=== PATIENT | female | born 1965 | race Caucasian/White ===

== ENCOUNTER 2025-07-06 09:36 | Observation (INO) ==
--- NOTE | 2025-06-01 10:29 | PAT Medication Instructions ---
Medication Instructions Date of Service June 01, 2025 Home Medications Medication Instructions Recorded 3-in-1 Commode #1 ea 05/23/25 albuterol sulfate 90 mcg/actuation breath activated powder inhaler 2 inh inhalation Q6H PRN Wheezing ascorbic acid (vitamin C) 1,000 mg tablet (Vitamin C) 1 g PO BID hydrochlorothiazide 25 mg tablet 25 mg PO QAM lisinopril 40 mg tablet 40 mg PO QAM multivitamin 1 tab PO QAM amlodipine 2.5 mg tablet 2.5 mg PO QAM atorvastatin 20 mg tablet 20 mg PO QAM [id number]-silerfaai-afmt tablet 1 tab PO BID duloxetine 30 mg capsule,delayed release 30 mg PO QAM naproxen sodium 220 mg capsule 220 mg PO BID PRN Pain omeprazole 20 mg tablet,delayed release 20 mg PO QAM turmeric 400 mg capsule 1,000 mg PO HS ASK your surgeon for instructions naproxen sodium 220 mg capsule 220 mg PO BID PRN Pain STOP taking 2 weeks before surgery (or as soon as possible if surgery is within 2 weeks) turmeric 400 mg capsule 1,000 mg PO HS DO NOT take the morning of surgery ascorbic acid (vitamin C) 1,000 mg tablet (Vitamin C) 1 g PO BID hydrochlorothiazide 25 mg tablet 25 mg PO QAM lisinopril 40 mg tablet 40 mg PO QAM multivitamin 1 tab PO QAM vnuddub-qhqfmaxnh-xswj tablet 1 tab PO BID Take morning of surgery With a small sip of water, OTHERWISE NOTHING TO EAT OR DRINK AFTER MIDNIGHT: albuterol sulfate 90 mcg/actuation breath activated powder inhaler 2 inh inhalation Q6H PRN Wheezing (use if needed; please bring rescue inhaler with you to hospital day of surgery if possible) amlodipine 2.5 mg tablet 2.5 mg PO QAM atorvastatin 20 mg tablet 20 mg PO QAM duloxetine 30 mg capsule,delayed release 30 mg PO QAM omeprazole 20 mg tablet,delayed release 20 mg PO QAM Take evening before surgery albuterol sulfate 90 mcg/actuation breath activated powder inhaler 2 inh inhalation Q6H PRN Wheezing (if needed) ascorbic acid (vitamin C) 1,000 mg tablet (Vitamin C) 1 g PO BID uwbjnwp-throcndbu-nofu tablet 1 tab PO BID Other Notes If you have any questions please call us at [phone] or [phone] or [phone] or [phone]
--- NOTE | 2025-06-07 13:02 | Anesthesiology Consultation ---
Date of Service June 07, 2025 Assessment & Plan (1) Encounter for pre-operative examination: - will send optimization form to [facility] PCP, Dr. Elena Hardin regarding EKG. Surgeon's office made aware. Patient made aware, denied questions or concerns. - check BSG am DOS. - bilat TKA discussion vs staged and patient wishes to proceed with bilat TKA. Chart Review Chart Review: Pending: Refer to Additional Notes / Consult section and Patient seen in Pre Admission Testing Teaching & Discussion Pre-Anesthesia Teaching/Discussion Notes: Instructed NPO after midnight before surgery, except medications with 15 cc of water. Medication instructions provided according to the PAT guidelines. History Surgery Operation Date: 07/06/25 12:20 Proposed Procedures p Bilateral Total Knee Arthroplasty - Keegan Arriola DO Height/Weight Height: 5 ft 2.5 in Weight: 111.5 kg Allergies Allergy/AdvReac Type Severity Reaction Status Date / Time adhesive tape Allergy Mild rash for Verified 05/30/25 14:14 lenghty duration lincomycin [From Lincocin] Allergy Mild Rash Verified 05/30/25 14:13 Medications Home Medications Medication Instructions Recorded Confirmed Last Taken albuterol sulfate 90 mcg/actuation 2 inh inhalation Q6H PRN Wheezing 09/08/21 12/19/21 Unknown breath activated powder inhaler ascorbic acid (vitamin C) 1,000 mg 1 g PO BID 09/08/21 05/30/25 12/18/21 07:00 tablet (Vitamin C) hydrochlorothiazide 25 mg tablet 25 mg PO QAM 09/08/21 05/30/25 12/18/21 07:00 lisinopril 40 mg tablet 40 mg PO QAM 09/08/21 05/30/25 12/18/21 07:00 multivitamin 1 tab PO QAM 09/08/21 05/30/25 12/18/21 07:00 3-in-1 Commode #1 ea 05/23/25 05/23/25 Unknown amlodipine 2.5 mg tablet 2.5 mg PO QAM 05/30/25 05/30/25 Unknown atorvastatin 20 mg tablet 20 mg PO QAM 05/30/25 05/30/25 Unknown njpfszp-irnlykiql-nuhd tablet 1 tab PO BID 05/30/25 05/30/25 Unknown duloxetine 30 mg capsule,delayed 30 mg PO QAM 05/30/25 05/30/25 Unknown release naproxen sodium 220 mg capsule 220 mg PO BID PRN Pain 05/30/25 05/30/25 Unknown omeprazole 20 mg tablet,delayed 20 mg PO QAM 05/30/25 05/30/25 Unknown release turmeric 400 mg capsule 1,000 mg PO HS 05/30/25 05/30/25 Unknown Past Medical History Medical History (Updated 06/07/25 @ 13:37 by Yoli Morgan PA-C) Arthritis Asthma controlled, stable per pt; has not used inhaler for over 1 year Diabetes mellitus type 2, diet-controlled 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 Exercise / Class Metabolic Activity III < 4 Walking/Shop/Light housework (denies chest discomfort or shortness of breath with usual activities) Past Family History Family History Grandmother (Paternal) Family history of diabetes mellitus Father Family history of esophageal cancer Other No family history of adverse response to anesthesia Past Surgical History Surgical History History of section x 1 History of colonoscopy 2020 History of dilatation and curettage x2--last 09/12/21 @ [place] with Dr. Valdez History of hysterectomy Past Anesthesia History No Hx of Anesthesia Complications and No Family Hx of Anesthesia Complications History of PONV No Hx of PONV and No Hx of Motion Sickness Social History Smoking Status: Never smoker Do You Dip or Chew Tobacco: No Hx Alcohol Use: No Hx Substance Use: No substance use type: does not use Review of Systems Patient denies chest pain, shortness of breath, dyspnea on exertion, fever, chills, cough, wheezing, or palpitations. Physical Exam Vital Signs Vitals BP 119/73 P 105 (Pt states she does feel somewhat stressed/anxious regarding surgery) TEMP 98.2 SP02 97% on RA RESP 18 Physical Patient resting comfortably in chair in no acute distress, alert and oriented, responding appropriately throughout visit Full cervical extension range of motion without pain TMD 3.5 finger breadths Mallampati Score 3 Dentition: several broken teeth; denies chipped or loose teeth, caps/crowns, implants or bridges Lungs: normal respiratory effort. Good air movement, clear throughout to auscultation, no adventitious breath sounds Cardiac: regular rate and rhythm, no murmurs noted Carotid arteries: negative bruit bilat Lab Results Anesthesia Preop Results Results Anesthesia Widget: WBC 10.42 K/ul (4.8-10.8) 06/07/25 Hgb 13.9 g/dl (12.0-16.0) 06/07/25 Hct 40.1 % (37.0-47.0) 06/07/25 Plt 321 K/uL (130-400) 06/07/25 Na 139 mmol/L (136-145) 06/07/25 K 3.9 mmol/L (3.5-5.1) 06/07/25 Cl 105 mmol/L (98-107) 06/07/25 CO2 26 mmol/L (21-32) 06/07/25 BUN 21 mg/dl (6-23) 06/07/25 Creat 0.67 mg/dl (0.6-1.2) 06/07/25 Glucose Level 138 mg/dl (70-99(Fasting)) H 06/07/25 PT 10.0 Seconds (9.0-12.0) 06/07/25 PTT 27 Seconds (21-31) 06/07/25 INR 0.9 (0.9-1.1) 06/07/25 HA1c 6.1 % (4.5-5.6) H 06/07/25 Blood Type O Positive 06/07/25 Antibody Screen NEGATIVE 06/07/25 Testing Electrocardiogram Date: 06/07/25 Sinus tachycardia, rate 104 bpm Cannot rule out anterior infarct, age undetermined V2 and V3 may be reversed Chest X-Ray Date: 06/07/25 No acute findings.
--- NOTE | 2025-07-04 16:29 | History & Physical Report ---
Date of Service July 04, 2025 Assessment & Plan (1) Osteoarthritis of knees, bilateral: We will proceed with bilateral total knee arthroplasties. Postoperatively, she will be started on aspirin for DVT prophylaxis and kept overnight in the hospital for postop medical management. She plans to use energy physical therapy at discharge. History of Present Illness Chief Complaint: Osteoarthritis bilateral knees. Primary Care Provider: Elena Hardin DO Patiño is a pleasant 59-year-old female who has been dealing with chronic, increasing bilateral knee pain. It has been going on for years. She has had a progressive varus deformity. She saw one of my partners who diagnosed her with severe osteoarthritis of both knees. She has seen other providers and has had Iovera treatment. Unfortunately, conservative treatment has not helped. X-rays and clinical examination be diagnostic for advanced osteoarthritis of both knees. After failing conservative treatment, she has elected to proceed with bilateral total knee arthroplasty. Allergies Allergy/AdvReac Type Severity Reaction Status Date / Time adhesive tape Allergy Mild rash for Verified 05/30/25 14:14 lenghty duration lincomycin [From Lincocin] Allergy Mild Rash Verified 05/30/25 14:13 Home Medications Medication Instructions Recorded Confirmed Type albuterol sulfate 90 mcg/actuation 2 inh inhalation Q6H PRN Wheezing 09/08/21 12/19/21 History breath activated powder inhaler ascorbic acid (vitamin C) 1,000 mg 1 g PO BID 09/08/21 05/30/25 History tablet (Vitamin C) hydrochlorothiazide 25 mg tablet 25 mg PO QAM 09/08/21 05/30/25 History lisinopril 40 mg tablet 40 mg PO QAM 09/08/21 05/30/25 History multivitamin 1 tab PO QAM 09/08/21 05/30/25 History 3-in-1 Commode #1 ea 05/23/25 05/23/25 Rx amlodipine 2.5 mg tablet 2.5 mg PO QAM 05/30/25 05/30/25 History atorvastatin 20 mg tablet 20 mg PO QAM 05/30/25 05/30/25 History xxijsfj-bndtpxnvm-zgmo tablet 1 tab PO BID 05/30/25 05/30/25 History duloxetine 30 mg capsule,delayed 30 mg PO QAM 05/30/25 05/30/25 History release naproxen sodium 220 mg capsule 220 mg PO BID PRN Pain 05/30/25 05/30/25 History omeprazole 20 mg tablet,delayed 20 mg PO QAM 05/30/25 05/30/25 History release turmeric 400 mg capsule 1,000 mg PO HS 05/30/25 05/30/25 History Past Med/Surg History Problem List (Updated 07/04/25 @ 16:29 by Keegan Arriola DO) Osteoarthritis of knees, bilateral Encounter for pre-operative examination Medical History Hx of gout Arthritis Diabetes mellitus type 2, diet-controlled Neuropathy feet Hx of cervical cancer treated with cryotherapy Hyperlipidemia Melanoma in situ of left lower extremity "had mole removed 12/11/21" 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 Physical Exam On physical examination of both knees, she does have a varus deformity. Tenderness palpation of the distal medial femoral condyle and over the medial joint lines.. Constitutional WD/WN, vitals as above Eyes PERRL, conjunctivae normal, anicteric sclerae ENMT external ear and nose normal, oropharynx normal Neck trachea midline, no thyromegaly Respiratory normal respiratory effort Cardiovascular RRR, no murmur, no edema Gastrointestinal (Abdomen) normal bowel sounds, soft, nontender, no hepatosplenomegaly Psychiatric A+Ox3, euthymic affect Results & Data Results & Data Laboratory Results . Diagnostic Findings X-rays of both knees show advanced osteoarthritis with joint space narrowing, osteophyte formation, and zjpl-qd-rnzo articulation. PG Care Time/CCT Total # of Minutes Spent Total Time Spent with Patient: Total time spent is greater than 50% in coordination of care (as documented) at patient's floor/unit and/or counseling patient: Coding Level of Care Code None Diagnoses Osteoarthritis of knees, bilateral M17.0
[~2025-07-06 09:36] MED LIST: BUPIVACAINE 0.25% PF 30 ML VIAL ONE; BUPIVACAINE 0.5 % 5 MG/1 ML PF 10ML VIAL ONE
[2025-07-06] MEDS ORDERED: MIDAZOLAM HCL 1 MG/ML 2ML VIAL ONE ×2 (10:09→12:08)
[2025-07-06] MEDS ORDERED: ONDANSETRON INJ 2 MG/ML 2 ML VIAL ONE (10:10)
[2025-07-06] MEDS ORDERED: PROPOFOL IV EMULSION 10 MG/ML 20 ML VIAL IV ONE ×4 (10:10→12:41)
[2025-07-06] MEDS: ACETAMINOPHEN 500 MG TAB PO SCH ×2 (10:33→22:52)
[2025-07-06] MEDS: GABAPENTIN 600 MG DOSE PO SCH (10:34)
[2025-07-06] MEDS: LR 500ML BOLUS, THEN 15ML/HR IV SCH (10:34)
[2025-07-06] MEDS: FAMOTIDINE 20 MG TAB PO SCH (10:34)
[2025-07-06] MEDS: dexAMETHasone**PF** 10 MG/ML VIAL IV SCH (10:37)
[2025-07-06] MEDS: LR 60ML/HR IV SCH (10:37)
--- NOTE | 2025-07-06 11:04 | History & Physical Bridge Note ---
Date of Service July 06, 2025 History & Physical Bridge Note I have examined the patient, reviewed the History & Physical and in the interval since the performance of the History & Physical I have noted the following changes of clinical significance: no changes noted
[2025-07-06] MEDS ORDERED: ONDANSETRON INJ 2 MG/ML 2 ML VIAL IV PRN ×2 (11:35→18:20)
[2025-07-06] MEDS ORDERED: ATROPINE SULFATE 0.1 MG/ML 10ML SYR IV PRN (11:35)
[2025-07-06] MEDS: TRANEXAMIC ACID 1,000 MG **IV Pre-op IV SCH (11:44)
[2025-07-06] MEDS: ORTHO JOINT ANESTHETIC ONE (12:52)
[2025-07-06] MEDS ORDERED: PROPOFOL IV EMULSION 10 MG/ML 100 ML VIAL IV ONE ×2 (13:04→14:40)
[2025-07-06] MEDS ORDERED: ALBUMIN HUMAN 5% 12.5 GM/250 ML VIAL IV ONE (14:19)
[2025-07-06] MEDS ORDERED: ESMOLOL HCL INJ 10 MG/ML 10ML VIAL IV ONE (14:27)
[2025-07-06] MEDS: ROPIV 0.5% 246mg, Ketorolac 30mg, EPINEPHrine 0.5mg in NSS INFIL SCH (14:30)
[2025-07-06] MEDS ORDERED: METOPROLOL TARTRATE 1 MG/ML VIAL IV ONE (14:48)
--- NOTE | 2025-07-06 16:02 | XRay Report ---
XR knee RT 1 or 2V routine, XR knee LT 1 or 2V routine CLINICAL HISTORY: Surgical Post Op COMPARISON: 01/19/2025 FINDINGS: Bilateral knee prostheses show no hardware complication. There is expected soft tissue gas . IMPRESSION: Unremarkable postoperative exams. ACT 112: Negative or not required by law. Electronically signed by: Abdullahi Lovelace M.D. 07/06/2025 4:01 PM
--- NOTE | 2025-07-06 16:59 | Anesthesiology Progress Note ---
Date of Service July 06, 2025 Anesthesia Post Procedure Vital Signs Vital Signs: Temp Pulse Pulse Resp BP Pulse Ox O2 Del Method 07/06/25 16:30 105 H 18 146/78 H 95 Nasal Cannula 07/06/25 16:20 105 H 16 133/90 96 Nasal Cannula 07/06/25 16:10 104 H 20 148/70 H 96 Nasal Cannula 07/06/25 16:00 104 H 15 140/79 91 Nasal Cannula 07/06/25 15:50 105 H 17 149/82 H 95 Nasal Cannula 07/06/25 15:40 102 H 11 L 142/80 H 94 Nasal Cannula 07/06/25 15:30 36.6 C 102 H 14 142/73 H 100 Oxymask 07/06/25 15:20 101 H 14 131/56 L 97 Oxymask 07/06/25 15:10 101 H 19 148/84 H 95 Oxymask 07/06/25 15:04 36.0 C L 107 H 18 122/63 92 Oxymask 07/06/25 10:07 36.7 C 93 H 20 145/81 H 97 Room Air O2 Flow Rate 07/06/25 16:30 2 07/06/25 16:20 2 07/06/25 16:10 2 07/06/25 16:00 2 07/06/25 15:50 2 07/06/25 15:40 2 07/06/25 15:30 9 07/06/25 15:20 9 07/06/25 15:10 9 07/06/25 15:04 9 07/06/25 10:07 Pain Intensity Left Knee: Pain Intensity: 8 Right Knee: Pain Intensity: 3 Transfer of Care Handoff Completed per policy Notes Mental Status: alert / awake / arousable Patient Amnestic to Procedure: Yes Nausea / Vomiting: adequately controlled Pain: adequately controlled Airway Patency, RR, SpO2: stable & adequate BP & HR: stable & adequate Hydration State: stable & adequate Anesthetic Complications: no major complications apparent
--- NOTE | 2025-07-06 17:43 | Operative Report ---
PG Post Operative Report Pre & Post Diagnosis Operation Date: 07/06/25 11:00 Pre-Op Diagnosis: Osteoarthritis of knees, bilateral Post-Op Diagnosis: Osteoarthritis of knees, bilateral I identified the patient and participated in the time-out.: Yes Procedure Operation Date: 07/06/25 11:00 Actual Procedures p Robotic Assisted Bilateral Total Knee Arthroplasty(Bilateral) - Keegan Arriola DO Surgeon Keegan Arriola DO [place] Torres Banda PA-C Estimated Blood Loss 60 Findings Consistent with Post-Op Diagnosis Specimens Bilateral femoral and tibial bone Description of Procedure Sybil arrived [facility] for the above procedure. She was seen in the preoperative holding area and the operative extremity was identified and signed. She was given a preoperative antibiotic, TXA, a spinal anesthetic and an adductor nerve block. She was taken back to the operating room and laid on the table in supine position. She was given basic sedation. The both knees were then prepped and draped in sterile fashion. A timeout was done, and the patient and the operative extremity was properly identified. RIGHT KNEE Implants used: I used a [employer] total knee arthroplasty system with a size 6 standard femur, D tibia, 31 oval patella, and a size 16 CPS polyethylene bearing. All components were cemented in place with Biomet cement. A midline incision was made directly over the patella. Dissection was taken down to the extensor mechanism. A medial parapatellar arthrotomy was used. The medial retinaculum was released and the fat pad was mostly excised. The knee was flexed and the ACL, PCL, and meniscus were removed. The alignment of the knee replacement was assisted with a [employer] robotic knee. The femoral array was pinned in the distal femur and the tibial array was pinned using a percutaneous technique in the upper shaft of the tibia. The robot was appropriately calibrated and the structure of the knee was mapped out. The components were then manipulated on the screen to account for any malalignment and to assist in gap balancing. Once I was happy with the placement of the components on the screen, a distal femoral cutting guide was brought in place. The distal femur was then resected. The femur measured to be a size 6. A 4-in-1 cutting block was then put into place by the robot and 2 peg holes were drilled. The 4-in-1 cutting block was then impacted into place and anterior, posterior, and chamfer cuts were made. The cutting block was then brought down to the tibia and pinned into place. The proximal tibia was then resected. The posterior aspect of the knee was then opened up and any additional meniscus fragments and osteophytes were removed. The tibia measured to be a size D. The tibial plate was then placed in the appropriate rotation and the tibia was drilled and punched. Trial components were then placed. Th e patella was then everted and 9 mm was resected off the posterior aspect of the patella. The patella measured to be a size 31 oval. 3 peg holes were then drilled. A trial patella was placed. A size 12 CPS polyethylene insert was then trialed. The knee was brought through a full range of motion and felt to be stable. Trial components were then removed. The surrounding soft tissues were injected with 100 cc of an orthopedic pain control cocktail. All components were then cemented into place with Biomet cement. The final polyethylene insert was then snapped into place. Once cement was dry the tourniquet was deflated. Hemostasis was obtained. A dilute betadyne lavage was then done for 3 minutes. The joint was then irrigated with normal saline solution. The medial parapatellar arthrotomy was then closed with #1 Vicryl suture. The skin was closed with 2-0 Vicryl, 3-0V lock suture, and Chan zip line. A soft compressive dressing was placed. LEFT KNEE Implants used: I used a [employer] total knee arthroplasty system with a size 6 narrow femur, D tibia, 28 oval patella, and a size 12 CPS polyethylene bearing. All components were cemented in place with Biomet cement. A midline incision was made directly over the patella. Dissection was taken down to the extensor mechanism. A medial parapatellar arthrotomy was used. The medial retinaculum was released and the fat pad was mostly excised. The knee was flexed and the ACL, PCL, and meniscus were removed. The alignment of the knee replacement was assisted with a [employer] robotic knee. The femoral array was pinned in the distal femur and the tibial array was pinned using a percutaneous technique in the upper shaft of the tibia. The robot was appropriately calibrated and the structure of the knee was mapped out. The components were then manipulated on the screen to account for any malalignment and to assist in gap balancing. Once I was happy with the placement of the components on the screen, a distal femoral cutting guide was brought in place. The distal femur was then resected. The femur measured to be a size 6. A 4-in-1 cutting block was then put into place by the robot and 2 peg holes were drilled. The 4-in-1 cutting block was then impacted into place and anterior, posterior, and chamfer cuts were made. The cutting block was then brought down to the tibia and pinned into place. The proximal tibia was then resected. The posterior aspect of the knee was then opened up and any additional meniscus fragments and osteophytes were removed. The tibia measured to be a size D. The tibial plate was then placed in the appropriate rotation and the tibia was drilled and punched. Trial components were then placed. The patella was then everted and 9 mm was resected off the posterior aspect of the patella. The patella measured to be a size 28 oval. 3 peg holes were then drilled. A trial patella was placed. A size 12 CPS polyethylene insert was then trialed. The knee was brought through a full range of motion and felt to be stable. Trial components were then removed. The surrounding soft tissues were injected with 100 cc of an orthopedic pain control cocktail. All components were then cemented into place with Biomet cement. The final polyethylene insert was then snapped into place. Once cement was dry the tourniquet was deflated. Hemostasis was obtained. A dilute betadyne lavage was then done for 3 minutes. The joint was then irrigated with normal saline solution. The medial parapatellar arthrotomy was then closed with #1 Vicryl suture. The skin was closed with 2-0 Vicryl, 3-0V lock suture, and Chan zip line. A soft compressive dressing was placed. She was then transferred to a hospital bed and taken to the postanesthesia care unit in stable condition. She tolerated the procedure well. Torres Banda PA-C, was present for the entire procedure. He was critical for patient positioning, prepping, draping, retraction exposure, wound closure and application of sterile dressing. I attest to the content of the Intraoperative Record and any orders documented therein. Any exceptions are noted below.
[2025-07-06] MEDS ORDERED: MAGNESIUM HYDROXIDE SUSP 30 ML UDC PO PRN (18:20)
[2025-07-06] MEDS ORDERED: NALOXONE HCL 0.4 MG/1 ML VIAL/CARP IV PRN (18:20)
[2025-07-06] MEDS ORDERED: HYDROmorphone INJ 0.5 MG/0.5 ML SYR IV PRN (18:20)
[2025-07-06] MEDS ORDERED: METOCLOPRAMIDE HCL INJ 5 MG/ML 2 ML VIAL IV PRN (18:20)
[2025-07-06] MEDS: SODIUM CHLORIDE 0.9% 1,000 ML IV SCH (18:30)
[2025-07-06] MEDS: KETOROLAC TROMETHAMINE 15 MG/ML VIAL IV SCH (18:30)
[2025-07-06] MEDS: DOCUSATE SODIUM 100 MG CAP PO SCH (20:03)
[2025-07-06] MEDS: ASPIRIN 81 MG ECTAB PO SCH (20:04)
[2025-07-06] MEDS: SENNA 8.6 MG TAB PO SCH (20:05)
--- NOTE | 2025-07-07 07:47 | Orthopedic Progress Note ---
Date of Service July 07, 2025 Assessment & Plan (1) Status post bilateral knee replacements: Overall she is doing well. She is not having much pain in her knees. She will be seen by physical therapy today for ambulation and range of motion exercises. She is on aspirin for DVT prophylaxis. She can be discharged to home later today if she does well with physical therapy. Otherwise, she can stay until tomorrow. The nursing staff can change her dressings after physical therapy. Pj Patiño was seen and examined at bedside this morning. Overall she is doing fairly well. She is not having much pain in her knees. She has not been up yet. She has no complaints.. Review of Systems All systems reviewed & are unremarkable except as noted in HPI & below. Physical Exam On physical exam of both knees, the dressings are clean and dry. Her legs are on full extension. She has active dorsiflexion plantarflexion of her ankles.. Results & Data Results & Data Laboratory Results . Diagnostic Findings X-rays of both knees show the prosthesis to be in anatomic alignment without any evidence of fracture complication, or loosening.. PG Care Time/CCT Total # of Minutes Spent Total Time Spent with Patient: Total time spent is greater than 50% in coordination of care (as documented) at patient's floor/unit and/or counseling patient: Coding Level of Care Code 96450 Post Operative Follow-Up Diagnoses Status post bilateral knee replacements Z96.653
[2025-07-07] MEDS: hydroCHLOROthiazide 25 MG TAB PO SCH (08:56)
[2025-07-07] MEDS: MULTIVITAMIN TAB PO SCH (08:56)
[2025-07-07] MEDS: ATORVASTATIN 20 MG TAB PO SCH (08:56)
--- NOTE | 2025-07-08 08:02 | Orthopedic Progress Note ---
Date of Service July 08, 2025 Assessment & Plan (1) Status post bilateral knee replacements: Overall she is doing fairly well. She is not having much pain in her knees today. She will be seen by physical therapy for ambulation and range of motion exercises. The nursing staff can change her dressings again after physical therapy. She is on aspirin for DVT prophylaxis. She can be discharged to home later today. She will follow-up with orthopedics in 2 weeks. Pj Devine was seen and examined at bedside this morning. Overall she is doing fairly well. She is not having too much pain in her knees. She was a little bit slow with physical therapy yesterday and decided to stay an extra day. She has no complaints.. Review of Systems All systems reviewed & are unremarkable except as noted in HPI & below. Physical Exam On physical examination of both knees, the dressings have been changed. She is sitting in a chair at bedside with her knees flexed at 90 degrees. She is neurovascular intact.. Results & Data Results & Data Laboratory Results . Diagnostic Findings . PG Care Time/CCT Total # of Minutes Spent Total Time Spent with Patient: Total time spent is greater than 50% in coordination of care (as documented) at patient's floor/unit and/or counseling patient: Coding Level of Care Code 47988 Post Operative Follow-Up Diagnoses Status post bilateral knee replacements Z96.653
--- NOTE | 2025-07-08 08:03 | Discharge Summary ---
Date of Service July 08, 2025 Admission HPI (Per Admitting) Kaylyn is a pleasant 59-year-old female who has been dealing with chronic, increasing bilateral knee pain. It has been going on for years. She has had a progressive varus deformity. She saw one of my partners who diagnosed her with severe osteoarthritis of both knees. She has seen other providers and has had Iovera treatment. Unfortunately, conservative treatment has not helped. X-rays and clinical examination be diagnostic for advanced osteoarthritis of both knees. After failing conservative treatment, she has elected to proceed with bilateral total knee arthroplasty. Admission Exam (Per Admitting) On physical examination of both knees, she does have a varus deformity. Tenderness palpation of the distal medial femoral condyle and over the medial joint lines.. Principal Diagnosis Same as "Discharge Diagnosis" noted below under Discharge Instructions. Discharge Exam On physical examination of both knees, the dressings have been changed. She is sitting in a chair at bedside with her knees flexed at 90 degrees. She is neurovascular intact.. Discharge Data Procedures Performed Operation Date: 07/06/25 11:00 Actual Procedures p Robotic Assisted Bilateral Total Knee Arthroplasty(Bilateral) - Keegan Arriola DO Ordered Studies 07/06/25 05:00 US - OR guided needle placemen Routine Hospital Course (1) Status post bilateral knee replacements: On July 06, 2025 Kaylyn arrived at [facility] and underwent bilateral knee replacements without complication. She had a spinal anesthetic. Postoperatively, she was started on aspirin for DVT prophylaxis and transferred to the general orthopedic floors. Her hospital course was uneventful. On postop day #1, her vital signs were stable and her pain was relatively well- controlled. She was a little bit slow with physical therapy because she had both of her knees replaced. She was having difficulty with stairs. On postop day #2, she was doing better. She was able to participate better with physical therapy and felt she had more strength. She was then discharged to home. She will follow-up with orthopedics in 2 weeks. PG Care Time/CCT Total # of Minutes Spent Total Time Spent with Patient: Total time spent is greater than 50% in coordination of care (as documented) at patient's floor/unit and/or counseling patient: Discharge Plan Discharge Items Patient Disposition: Home - Self-Care Reason For Visit: Bilateral Knee Arthritis Discharge Diagnosis: Bilateral knee replacements Activity: Per Instructions section Non-emergency contact: Surgeon Call non-emergency contact if: your wound has increased redness and your wound has increased drainage Follow-up/Referrals: Elena Hardin, [Primary Care Provider] - Diet: Regular Addtl Attending Provider Instructions: Activity and Therapy Recommendations: * If you are using [facility] then therapy will be provided at your home until they feel you have accomplished all of your goals. * If you are using [facility] then Physical Therapy will be provided until they feel you are ready to start Outpatient Physical Therapy. * If you are not using home therapy then Outpatient Physical Therapy should start about 3-5 days from your day of surgery. Therapy will last about 6-10 weeks * It is important not to put a pillow under your knee when you are relaxing or sleeping. It is just as important to make sure you are getting your knee perfectly straight as it is to regain your knee bend. * You were shown a series of exercises in the hospital. Do these exercises three times each day including the exercises you were shown in physical therapy. * Get up and walk several times each day. For the first four weeks, try not to stand or walk for more than one hour at a time. If you do stand or walk for more than one hour, you will not hurt anything, but your leg will likely swell. * As you feel comfortable, you may change from the walker or crutches to a cane and then to independent walking. Medications: * Narcotic You will likely be sent home from the hospital with a prescription for the narcotic pain medication that worked best throughout your stay. * Cefadroxil -take the antibiotic twice a day for 10 days to help prevent infection. * Aspirin Most patients will be required to take Aspirin 81mg twice a day for 6 weeks after surgery. This is obtained [id number] and a prescription is not necessary. * Other medications may be prescribed for specific circumstances. If you have any questions, please call the office at . * Resume previous home medications unless otherwise instructed TEDs/Elastic Stockings: The white elastic stockings help limit swelling and prevent blood clots from forming in your legs.~ The more you wear them, the more they work. Wear them for 2 weeks. Dressing Care: The dressing can be changed after physical therapy on postop day #1. Daily dry dressing changes for a few days, especially if the incision is still draining some. Do not remove the [place] zip line If the incision is not draining then you may leave the [place] zip line open to air. If there is a little bit of drainage or if the [place] zip line is getting stuck on your clothing then cover the incision with a dry dressing. The [place] zip line will be removed at your 2 week follow-up appointment. Showering: You may shower 5 days from the day of surgery as long as the incision is no long er draining. You may shower with the Chan zip line exposed. Let soapy water run over the [place] zip line and pat it dry. Do not scrub or soak the incision. Diet: You may resume your previous diet. Things To Watch For: * Drainage from the incision site that occurs more than one week after your surgery. * Increased redness at the incision site. * Fever above 102 degrees Fahrenheit. * Unusual chest pain or shortness of breath. * Call [facility] at with any of the above problems Follow-Up Visit: Follow-up with Dr. Arriola's office 2-3 weeks after your day of surgery. We will remove your richa and answer any questions. If you have any additional questions or concerns, Dr Arriola is usually in the office at the same time and will be available An appointment was probably scheduled when you signed-up for surgery in the office. If you have any questions call Office Instructions: More detailed instructions as well as Frequently Asked Questions were provided in a folder by our office when you signed-up for surgery. Please review these instructions when you get home. If you have any further questions or concerns, please feel free to call the office at [phone] Pending Studies at Discharge: No Stand-Alone Forms: [facility] Medications and DC Order Prescriptions: New aspirin 81 mg Tablet,Delayed Release (Dr/Ec) 81 mg PO BID 42 Days Qty: 84 0RF cefadroxil 500 mg capsule 500 mg PO BID 10 Days Qty: 20 0RF oxycodone 5 mg tablet 5 mg PO Q6H PRN (Reason: pain) Qty: 30 0RF Continued (DME) 3-in-1 Commode Misc See Rx Instructions .MEDSUPPLY Qty: 1 0RF Rx Instructions: As directed multivitamin Tablet 1 tab PO QAM ascorbic acid (vitamin C) [Vitamin C] 1,000 mg Tablet 1 g PO BID hydrochlorothiazide 25 mg Tablet 25 mg PO QAM lisinopril 40 mg Tablet 40 mg PO QAM albuterol sulfate 90 mcg/actuation Aerosol Powdr Breath Activated 2 inh INHALATION Q6H PRN (Reason: Wheezing) atorvastatin 20 mg Tablet 20 mg PO QAM amlodipine [Norvasc] 2.5 mg Tablet 2.5 mg PO QAM [id number] Tablet 1 tab PO BID duloxetine 30 mg Capsule,Delayed Release(Dr/Ec) 30 mg PO QAM omeprazole 20 mg Tablet,Delayed Release (Dr/Ec) 20 mg PO QAM naproxen sodium 220 mg Capsule 220 mg PO BID PRN (Reason: Pain) turmeric 400 mg Capsule 1,000 mg PO HS Patient Comments: takes 500mg gummies 2 doses at hs Discharge Orders: Discharge Order (Routine); Ordered 07/08/25 Ordered By: Keegan Arriola Admission Data Admit Date/Time: 07/06/25 15:14 Attending Provider: Keegan Arriola Admit Provider: Keegan Arriola Primary Care Provider: Elena Hardin
== END 2025-07-08 13:13 | disposition home or self-care (01) ==
LOC: 3E 09:36 → ASU 09:36